=== PATIENT | female | born 2000 | race Caucasian/White ===

== ENCOUNTER → 2022-08-27 13:41 | Outpatient (CLI) | payer BC, SELFPAY ==
--- NOTE | ~2022-08-27 | US_ITS ---
EXAMINATION: US pelvic complete DATE: 08/27/2022 13:56 INDICATION: Bilateral adnexal pain TECHNIQUE: Multiple transabdominal sonographic images of the pelvis were obtained. COMPARISON: None. FINDINGS: The uterus measures 6.4 x 2.6 x 3.6 cm. The endometrial complex measures 4 mm. The right ov gutierrez measures 2.9 x 1.4 x 1.6 cm. The left ovary measures 2 x 1.2 x 1.6 cm. There is normal vascular f low in the ovaries. There is no free fluid in the pelvis. IMPRESSION: 1. No sonographic correlate for the patient's symptoms. Reviewed, dictated and finalized at location L. LACTATION
== END ==
PROVIDERS: PCP Nurse Practitioner; Visit Provider Nurse Practitioner
DX: R10.2 Pelvic and perineal pain (principal)
CPT/HCPCS: 76856

== ENCOUNTER → 2023-01-28 13:06 | Outpatient (CLI) | payer BC, SELFPAY ==
--- NOTE | ~2023-01-28 | US_ITS ---
Pelvic ultrasound. Clinical History: First trimester , evaluate viability Technique: Realtime transabdominal and transvaginal scanning of the pelvis was performed. Color flow Doppler and Doppler spectral analysis were performed. Findings: The uterus is anteverted, and contains an intrauterine gestation. Hester-rump length of 1.4 cm corresponds to an estimated gestational age of 7 weeks 4 days. heart rate is 162 bpm. The right ovary measures 2.6 x 1.7 x 2.3 cm. No significant right ovarian or adnexal mass is seen. The left ovary measures 2.6 x 2.0 x 2.9 cm. No significant left ovarian or adnexal mass is seen. There is no evidence of free fluid in the cul de sac. Impression: Live intrauterine gestation with estimated gestational age of 7 weeks 4 days. heart rate is 162 bpm. Sonographic AIRAM is 09/11/2023. Reviewed, dictated and finalized at [facility]. Impression: Live intrauterine gestation with estimated gestational age of 7 weeks 4 days. F etal heart rate is 162 bpm. Sonographic AIRAM is 09/11/2023.
== END ==
PROVIDERS: PCP Advanced Practice Midwife; Visit Provider Advanced Practice Midwife
DX: O36.80X0 Pregnancy with inconclusive fetal viability, not applicable or unspecified (principal); Z3A.01 Less than 8 weeks gestation of pregnancy
CPT/HCPCS: 76801

== ENCOUNTER → 2023-04-19 10:47 | Outpatient (CLI) | payer BC, MEDICAID, SELFPAY ==
--- NOTE | ~2023-04-19 | US_ITS ---
EXAMINATION: US OB /maternal detail DATE: 04/19/2023 11:35 INDICATION: anatomic survey. TECHNIQUE: Real-time ultrasound of the pelvis was performed. COMPARISON: Ultrasound 01/28/23 FINDINGS: There is a single living fetus in breech presentation. The placenta is anterior and fundal, 7.6 cm f rom the cervix. The cervical length is 3.6 cm on transabdominal images, which is normal. heart rate is 157 beats per minute (bpm). The amniotic fluid volume is subjectively normal. The following biometric data were obtained: Biparietal diameter (BPD): 4.3 cm; head circumference (HC): 16.7 cm; abdominal circumference (AC): 14 .1 cm; femur length (FL): 2.9 cm. These measurements are concordant. Estimated weight is 280 g +/- 42 g, which correlates with the 41st percentile when 09/11/23 is u sed as estimated date of delivery. As single measurements, these parameters are each equal to the following estimated gestational ages: BPD: 19 weeks 0 days. HC: 19 weeks 3 days. AC: 19 weeks 3 days. FL: 18 weeks 6 days. estimated gestational age based solely on measurements from this exam is 19 weeks 1 days +/- 1 weeks 2 days. The cerebral ventricles, cerebellum, cisterna magna, nuchal fold, lip, and visualized portions of the spine are normal. The heart is normal. The diaphragm, stomach, kidneys, and bladder are normal. Ther e are two umbilical arteries to yield a 3-vessel cord. The cord insertion is normal. IMPRESSION: 1. Single living fetus in breech presentation. 2. Estimated weight is 280 g +/- 42 g, which correlates with the 41st percentile when 09/11/23 is used as estimated date of delivery. This date was set by ultrasound on 01/28/2023. 3. Normal anatomic survey. Reviewed, dictated and finalized at location A. IMPRESSION: 1. Single living fetus in breech presentation. 2. Estimated weight is 280 g +/- 42 g, which correlates with the 41st pe rcentile when 09/11/23 is used as estimated date of delivery. This date was set by ultrasound on 01/28/2023. 3. Normal anatomic survey.
== END ==
PROVIDERS: PCP Advanced Practice Midwife; Visit Provider Advanced Practice Midwife
DX: Z36.9 Encounter for antenatal screening, unspecified (principal)
CPT/HCPCS: 76805

== ENCOUNTER 2023-08-17 16:41 | Outpatient (CLI) | payer MEDICAID, SELFPAY ==
--- NOTE | ~2023-08-17 | US_ITS ---
EXAMINATION: US OB follow up DATE: 08/17/2023 17:34 INDICATION: Size less than dates. TECHNIQUE: Real-time ultrasound of the pelvis was performed. COMPARISON: Ultrasound 04/19/2023, 01/28/2023 FINDINGS: There is a single living fetus in vertex presentation. The placenta is anterior. heart rate is 150 beats per minute (bpm). The amniotic fluid index is 10.0 cm, which is normal. The following biometric data were obtained: Biparietal diameter (BPD): 9.0 cm; head circumference (HC): 33.4 cm; abdominal circumference (AC): 29 .2 cm; femur length (FL): 6.8 cm. These measurements are discordant with high HC/AC ratio. Estimated weight is 2451 g +/- 368 g, which correlates with the 11th percentile when 09/11/23 is used as estimated date of delivery. As single measurements, these parameters are each equal to the following estimated gestational ages: BPD: 36 weeks 3 days. HC: 38 weeks 1 days. AC: 33 weeks 1 days. FL: 35 weeks 0 days. estimated gestational age based solely on measurements from this exam is 35 weeks 5 days +/- 2 weeks 3 days. IMPRESSION: 1. Single living fetus in vertex presentation. 2. Estimated weight is 2451 g +/- 368 g, which correlates with the 11th percentile when 4 is used as estimated date of delivery. This date was set by ultrasound on 01/28/2023. 3. Discordant biometrics with high HC/AC ratio. Reviewed, dictated and finalized at location E. PATCHER IMPRESSION: 1. Single living fetus in vertex presentation. 2. Estimated weight is 2451 g +/- 368 g, which correlates with the 11th percentile when 09/11/23 is used as estimated date of delivery. This date was se t by ultrasound on 01/28/2023. 3. Discordant biometrics with high HC/AC ratio.
== END 2023-08-17 16:42 | disposition home or self-care (01) ==
LOC: ANHIMG 16:43
PROVIDERS: PCP Family Medicine; Visit Provider Advanced Practice Midwife
DX: O36.5930 Maternal care for other known or suspected poor fetal growth, third trimester, not applicable or unspecified (principal); Z3A.00 Weeks of gestation of pregnancy not specified
CPT/HCPCS: 76816

== ENCOUNTER 2023-08-19 11:00 | Outpatient (CLI) | payer BC, MEDICAID, SELFPAY ==
--- NOTE | ~2023-08-19 | US_ITS ---
US umbilical doppler 08/19/2023 12:12 Indication: Size less than gestational dates. Procedure: High-resolution Limited obstetrical ultrasound including umbilical Doppler examination Comparison: Ultrasound dated 08/17/2023 Findings: There is a single living intrauterine in vertex presentation. Placenta is anterio r without previa. heart rate 149 BPM. Amniotic fluid is subjectively normal. Umbilical artery pulsed Doppler demonstrates peak systolic to end-diastolic velocity ratios (S/D rati os) of 2.9 near the fetus, 2.9 in the mid cord, and 2.1 near the placenta (5th percentile = 2, 95th p ercentile = 3.3). Impression: 1: Single living intrauterine in vertex presentation. 2: Normal umbilical Doppler study. Reviewed, dictated and finalized at location L. OFFICER Impression: 1: Single living intrauterine in vertex presentation. 2: Normal umbilical Doppler study.
== END 2023-08-19 11:01 | disposition home or self-care (01) ==
LOC: ANHIMG 11:02
PROVIDERS: PCP Family Medicine; Visit Provider Obstetrics & Gynecology Gynecology
DX: O36.5930 Maternal care for other known or suspected poor fetal growth, third trimester, not applicable or unspecified (principal); Z3A.00 Weeks of gestation of pregnancy not specified
CPT/HCPCS: 76820

== ENCOUNTER 2023-08-31 16:55 | Inpatient (IN) | payer BC, MEDICAID, SELFPAY ==
[2023-08-31] VITALS (12 sets, daily range): BP systolic 80–122; BP diastolic 49–88; PULSE 92–114; BMI 33.8
--- NOTE | 2023-08-31 16:55 | LDADM ---
This patient, Elisa Waldron, was admitted to Labor/Delivery/Recovery 107 on 08/31/23 at 16:55. Plans for labor, pain management and were discussed with patient. Patient/family oriented to hospital policies and general routines including ID bracelet, bed and alarms, visiting hours, pain management, procedures, bathroom and other care routines, personal items, smoking policy, room service/diet and guest tray routines, infant security routines, and visiting hours. Patient/Family are encouraged to report perceived risks to care and to ask questions if they do not understand what they are told or what they should do. See OBIX for further documentation.
[2023-08-31 17:50] LABS: Basophils Absolute Auto 0.1 K/mm3 (0.0-0.1); Basophils Percent Auto 0.4 % (0.2-1.2); Eosinophils Absolute Auto 0.1 K/mm3 (0-0.3); Eosinophils Percent Auto 0.9 % (0-4.4); Hematocrit 34.4 % (37.0-47.0); Hemoglobin 10.8 g/dL (12.0-15.0); Immature Granulocyte Percent A 0.8 % (0-0.5); Lymphocytes Absolute Auto 2.36 K/mm3 (0.9-3.2); Mean Corpuscular HGB Conc 31.4 g/dl (32-36); Mean Corpuscular Hemoglobin 24.6 pg (26-34); Mean Corpuscular Volume 78.4 fl (80-100); Mean Platelet Volume 10.8 fl (7.4-10.4); Monocytes Absolute Auto 1.1 K/mm3 (0.1-0.6); Monocytes Percent Auto 8.5 % (2.6-8.5); Neutrophils Absolute Auto 8.8 K/mm3 (1.3-6.7); Neutrophils Percent Auto 70.4 % (45.5-73.1); Platelet Count Result 305 k/mm3 (150-375); Red Blood Count 4.39 M/mm3 (4.2-5.4); Red Cell Distribution Width 14.7 % (11.5-14.5); White Blood Count 12.4 K/mm3 (4.5-10.0)
[2023-08-31] MEDS: miSOPROStol 25 MCG TABLET PO (18:14)
[2023-08-31] MEDS: miSOPROStol 25 MCG TABLET 50 MCG PO (22:26)
[2023-09-01] VITALS (300 sets, daily range): BP systolic 66–175; BP diastolic 24–153; PULSE 25–180; TEMP 36.2–36.9; O2SAT 88–100
[2023-09-01] MEDS: LACTATED RINGERS 1,000 ML 999 ML IV CONT ×3 (01:41→13:49)
[2023-09-01] MEDS: OXYTOCIN 30 UNITS/NS 500 ML 30 UNITS/500 ML BAG IV CONT (03:41)
[2023-09-01] MEDS: LACTATED RINGERS 500 ML 999 ML IV CONT (07:16)
--- NOTE | 2023-09-01 07:17 | WPDANESEPP ---
Anes - Eval Pre Procedure Procedure: labor epidural Date/Time: 09/01/23 07:17 Surgeon: jorge Preop Diagnosis: pain during labor Pre Op Diagnosis: Induction of Labor Patient Data Age: 22 Gender: F Height: 1.57 m Weight: 84 kg Last Vital Signs Temp 36.2 C L 09/01/23 06:17 Pulse 91 09/01/23 07:00 BP 112/62 09/01/23 07:00 Pulse Ox 99 09/01/23 07:13 O2 Del Method Room Air 08/31/23 18:00 Allergies Allergy/AdvReac Type Severity Reaction Status Date / Time sumatriptan Allergy Swelling Verified 08/06/23 13:56 of Lip/Tongue/Throat Home Medications Medication Instructions Recorded Confirmed Type Classic 1 tab-cap PO DAILY 08/06/23 08/06/23 History aspirin 81 mg capsule 81 mg PO DAILY 08/06/23 08/31/23 History ergocalciferol (vitamin D2) 1,250 50,000 unit PO WEEKLY 08/06/23 08/06/23 History mcg (50,000 unit) capsule (Vitamin D2) Laboratory Tests 08/31/23 17:27 WBC 12.4 H K/mm3 (4.5-10.0) RBC 4.39 M/mm3 (4.2-5.4) Hgb 10.8 L g/dL (12.0-15.0) Hct 34.4 L % (37.0-47.0) MCV 78.4 L fl (80-100) MCH 24.6 L pg (26-34) MCHC 31.4 L g/dl (32-36) RDW 14.7 H % (11.5-14.5) Plt Count 305 k/mm3 (150-375) MPV 10.8 H fl (7.4-10.4) Immature Gran % (Auto) 0.8 H % (0-0.5) Neut % (Auto) 70.4 % (45.5-73.1) Lymph % (Auto) 19.0 % (18.3-44.2) [place] % (Auto) 8.5 % (2.6-8.5) Eos % (Auto) 0.9 % (0-4.4) Baso % (Auto) 0.4 % (0.2-1.2) Lymph # (Auto) 2.36 K/mm3 (0.9-3.2) [place] # (Auto) 1.1 H K/mm3 (0.1-0.6) Eos # (Auto) 0.1 K/mm3 (0-0.3) Baso # (Auto) 0.1 K/mm3 (0.0-0.1) Abs Immat Gran (auto) 0.10 H K/mm3 (0.00-0.031) Absolute Neuts (auto) 8.8 H K/mm3 (1.3-6.7) Absolute Nucleated RBC 0.0 K/mm3 (0.0-0.012) Nucleated RBC % 0.0 % (0.0-0.2) RPR Pending Blood Type O Positive Antibody Screen Negative Patient hx anesthesia problems: none Family hx anesthesia problems: none Results Review: All pre-operative results and documents have been reviewed as part of the pre-operative evaluation. [facility] Past Medical History Medical History (Updated 09/01/23 @ 07:18 by Arielle Waller CRNA) IUP (intrauterine ), incidental Social History Social History Smoking status: Never smoker Substance use: never Do You Feel Safe in your Home?: Yes Lack of Transportation: No Lack of Food: Never True Current Housing: I Have Housing Concerned About Future Housing: No Difficulty Paying Gas/Electric Bills: No Difficulty Paying for Meds: No Currently Unemployed: No Education: High School Diploma/GED Difficulty w/ Childcare or Family Care: No Spiritual care concerns: No Exam Day of Procedure 09/01/23 07:17
--- NOTE | 2023-09-01 07:19 | PM.OBPNLAB ---
Pain Control Date/time seen: 09/01/23 0500 CNM called by Syl RAMOS. Pain control: tolerating well Assessment and Plan Comments: Called overnight with intermittent decelerations. Pitocin stopped. Minimal cervical change with cytotec.
--- NOTE | 2023-09-01 07:21 | PM.OBPNLAB ---
Pain Control Date/time seen: 09/01/23 0441 Pain control: tolerating well Assessment and Plan Comments: Spoke with Dr. Borges on telephone. Discussed intermittent decels overnight and that pitocin was turned off. MD advised may offer to break water and place IUPC or elect for .
--- NOTE | 2023-09-01 07:22 | PM.OBPNLAB ---
Pain Control Date/time seen: 09/01/23 07:15 Pain control: tolerating well Comments: CNM at bedside. Pelvic Exam Dilation (cm): 2 Effacement (%): 75 station: -2 Amniotic membrane status: Intact Comments: head well applied to cervix. Contractions Monitor mode: External Contraction pattern: Irregular Status status: Category ll Assessment and Plan Comments: Discussed plan of care with Vanita and her S.O. Discussed MD's recommendations. Reviewed tracing. Many periods of category 1 tracing with accelerations. Vanita elects for amniotomy and IUPC placement. Discussed risks, benefits, and expectations of breaking water. Amniotomy performed and there was a small return of clear amniotic fluid. IUPC inserted easily and clear fluid returned in catheter. Patient tolerated procedure well. Plan to start pitocin after 30 minutes as needed to achieve adequate contraction pattern. Dr. Borges updated.
--- NOTE | 2023-09-01 07:25 | PM.IMHP ---
H&P: HPI History of Present Illness Date/Time: 09/01/23 07:25 Chief Complaint: Induction of labor Narrative: 22 y.o. at 39 weeks 2 days. Elective IOL. Review of Systems Review of Systems: All systems reviewed & are unremarkable except as noted in HPI and below PMFSH Past Medical History Medical History (Updated 09/01/23 @ 07:27 by Sapphire Urena CNM) IUP (intrauterine ), incidental Social History Social History Smoking status: Never smoker Substance use: never Do You Feel Safe in your Home?: Yes Lack of Transportation: No Lack of Food: Never True Current Housing: I Have Housing Concerned About Future Housing: No Difficulty Paying Gas/Electric Bills: No Difficulty Paying for Meds: No Currently Unemployed: No Education: High School Diploma/GED Difficulty w/ Childcare or Family Care: No Spiritual care concerns: No Meds Home Medications and Allergies Home Medications Medication Instructions Recorded Confirmed Type Classic 1 tab-cap PO DAILY 08/06/23 08/06/23 History aspirin 81 mg capsule 81 mg PO DAILY 08/06/23 08/31/23 History ergocalciferol (vitamin D2) 1,250 50,000 unit PO WEEKLY 08/06/23 08/06/23 History mcg (50,000 unit) capsule (Vitamin D2) Allergies Allergy/AdvReac Type Severity Reaction Status Date / Time sumatriptan Allergy Swelling Verified 08/06/23 13:56 of Lip/Tongue/Throat Vital Signs Vital Signs - 24 hr 08/31/23 17:42 08/31/23 17:45 08/31/23 18:31 Temperature Pulse Rate 101 H 106 H 110 H Blood Pressure 114/69 99/64 L 104/88 Pulse Oximetry Oxygen Delivery 08/31/23 19:01 08/31/23 20:01 08/31/23 20:31 Temperature Pulse Rate 93 107 H Blood Pressure 99/49 L 103/75 97/63 L Pulse Oximetry Oxygen Delivery 08/31/23 21:01 08/31/23 21:31 08/31/23 22:00 Temperature Pulse Rate 114 H 105 H 105 H Blood Pressure 80/57 L 117/68 112/74 Pulse Oximetry Oxygen Delivery 08/31/23 22:30 08/31/23 23:00 08/31/23 23:30 Temperature Pulse Rate 101 H 103 H 92 Blood Pressure 120/85 122/78 112/76 Pulse Oximetry Oxygen Delivery 09/01/23 00:01 09/01/23 00:30 09/01/23 01:30 Temperature Pulse Rate 97 99 102 H Blood Pressure 123/71 104/65 103/63 Pulse Oximetry Oxygen Delivery 09/01/23 01:45 09/01/23 02:00 09/01/23 02:16 Temperature Pulse Rate 87 88 89 Blood Pressure 99/58 L 95/54 L 115/85 Pulse Oximetry Oxygen Delivery 09/01/23 02:20 09/01/23 02:25 09/01/23 02:30 Temperature Pulse Rate 94 Blood Pressure 114/71 Pulse Oximetry 99 99 99 Oxygen Delivery 09/01/23 02:35 09/01/23 02:40 09/01/23 02:45 Temperature Pulse Rate 88 Blood Pressure 120/69 Pulse Oximetry 99 98 99 Oxygen Delivery 09/01/23 02:50 09/01/23 02:55 09/01/23 03:00 Temperature Pulse Rate 96 Blood Pressure 118/77 Pulse Oximetry 99 100 93 Oxygen Delivery 09/01/23 03:05 09/01/23 03:10 09/01/23 03:15 Temperature Pulse Rate 99 Blood Pressure 112/71 Pulse Oximetry 99 99 98 Oxygen Delivery 09/01/23 03:20 09/01/23 03:25 09/01/23 03:30 Temperature Pulse Rate 95 Blood Pressure 117/73 Pulse Oximetry 100 99 99 Oxygen Delivery 09/01/23 03:35 09/01/23 03:40 09/01/23 03:45 Temperature Pulse Rate 92 Blood Pressure 137/115 H Pulse Oximetry 99 100 99 Oxygen Delivery 09/01/23 03:47 09/01/23 03:50 09/01/23 03:55 Temperature Pulse Rate 85 Blood Pressure 100/53 L Pulse Oximetry 99 99 Oxygen Delivery 09/01/23 04:00 09/01/23 04:05 09/01/23 04:10 Temperature 97.8 F Pulse Rate 88 Blood Pressure 107/56 L Pulse Oximetry 99 99 98 Oxygen Delivery 09/01/23 04:15 09/01/23 04:17 09/01/23 04:20 Temperature Pulse Rate 90 Blood Pressure 102/56 L Pulse Oximetry 98 100 Oxygen Delivery 09/01/23 04:25 09/01/23 04:30 02/07/24 04:31 Temperature Pu
[2023-09-01] MEDS: fentaNYL CITRATE INJ (*CRX) 100 MCG/2 ML VIAL 50 MCG IV PUSH (07:35)
[2023-09-01] MEDS: SODIUM CHLORIDE 0.9% IV 600 ML I-UTERINE (09:02)
[2023-09-01] MEDS: ONDANSETRON INJ 4 MG/2 ML VIAL IV PUSH (11:16)
--- NOTE | 2023-09-01 12:12 | PM.OBPNLAB ---
Pain Control Date/time seen: 09/01/23 12:08 Pain control: epidural Pelvic Exam Amniotic membrane status: Ruptured Contractions Monitor mode: Internal Contraction pattern: Irregular Status status: Category ll Assessment and Plan Comments: Spoke with Juanis RAMOS. Strip reviewed. Encourage frequent position change. Ctx pattern irregular. Encouraged upright positioning if FHTs tolerate. Call CNM with concerns. Dr. Borges updated.
[2023-09-01 13:01] LABS: Rapid Plasma Reagin Non-Reactive (NonReactive)
[2023-09-01] MEDS: CALCIUM CARBONATE (TUMS) 500 MG (200 MG ELEMENTAL) 400 MG PO (14:42)
[2023-09-01] MEDS: SODIUM CHLORIDE 0.9% IV 1,000 ML 150 ML I-UTERINE (14:43)
--- NOTE | 2023-09-01 18:15 | PM.OBPNLAB ---
Pain Control Date/time seen: 09/01/23 1720 Pain control: tolerating well and epidural Pelvic Exam Amniotic membrane status: Ruptured Contractions Monitor mode: Internal Contraction pattern: Irregular Intrauterine tone measurement: 200 Status status: Category ll Comments: Reassured by moderate variability and accelerations Assessment and Plan Assessment: induction ongoing Plan: continuous present management Comments: CNM at bedside. No evidence of infection. Discussed plan of care. Discussed tracing an ctx pattern. Pt feeling positive and desires to continue IOL. Dr. Morgan updated.
[2023-09-01] MEDS: OXYTOCIN 30 UNITS/NS 500 ML 30 UNITS/500 ML BAG 999 UNITS IV CONT (21:47)
[2023-09-01] MEDS: OXYTOCIN 30 UNITS/NS 500 ML 30 UNITS/500 ML BAG 125 UNITS IV CONT (22:15)
--- NOTE | 2023-09-01 22:25 | PM.OBPRVD ---
OB - Vaginal Delivery Note Procedure Delivery date: 09/01/23 Events: Elective Induction of Labor Induction method: AROM, Per Misoprostol Protocol and Per Pitocin Protocol Delivery augmentation: Pitocin Delivery monitor: External FHT and Internal Uterine Route of delivery: Episiotomy description: None Laceration Description: Periurethral (bilateral), Perineal - 2nd Degree and Labial (right) Delivery repair: vicryl Specimen: No Quantitative Blood Loss (ml): 250 Anesthesia type: Epidural Disposition: Floor Complications: No immediate complications Narrative: Vanita Arrived for induction of labor. She was given 2 doses of Cytotec. Followed by Pitocin. She progressed to complete dilation and began pushing with contractions. She brought the head to a complete crown. With the next push there was delivery of the head and restitution was observed. She then easily delivered the anterior and posterior shoulders followed by remainder of the infant. The infant was placed on maternal abdomen and dried and stimulated with the nursery staff. After less than 1 minute of life, the cord was doubly clamped and cut and the baby was brought to the warmer. Cord blood, cord gases, and cord segment were obtained. The placenta delivered spontaneously and a second-degree perineal laceration was repaired in usual fashion. It did extend to the right labia and this was also repaired. Bilateral periurethral tears were superficial and hemostatic. There was excellent uterine tone, although he recounts were correct. Mother and baby skin to skin in the delivery room Baby Date of : 09/01/23 Time of : 21:46 Weeks of gestation at delivery: 39 Infant gender: Female Weight (pounds): 0 (weight unavailable at the time of this note) presentation: vertex position: Right Occiput Anterior Placenta delivery description: Spontaneous and Normal Configuration Cord Vessel Description: 3 Vessels and Delayed Cord Clamping (less than one minute per nursery staff request.) score one minute: 4 score five minutes: 7
--- NOTE | 2023-09-01 22:33 | WPDOBADMIT ---
Obstetrics - Admit Note Admission Note: record reviewed. No pertinent additions to the history and/or any subsequent changes in the physical findings that are not consistent with the expected course of the were found. Additions to the history and/or subsequent changes in the physical findings follow. None. Admitted on for IOL
--- NOTE | 2023-09-01 22:33 | PM.OBDSVD ---
DS: Admitting Diagnosis Discharge Date 09/03/23 Admitting Diagnosis 22 y.o. at 39 weeks gestation Elective IOL DS: Discharge Diagnosis Discharge Diagnosis (1) 39 weeks gestation of : Code(s): Z3A.39 - 39 weeks gestation of Status: Acute (2) (normal spontaneous vaginal delivery): Code(s): O80 - Encounter for full-term uncomplicated delivery Status: Acute (3) Intends to breastfeed: Status: Acute (4) Obstetric vaginal laceration with second degree perineal laceration: Code(s): O70.1 - Second degree perineal laceration during delivery Status: Acute OB - DS: Summary Hospital Course Hospital Course: Uncomplicated. transferred to . OB Procedures : Ultrasound OB Procedures Intrapartum: Spontaneous Vag Delivery OB Procedures: : None Peripartum Data Delivery Method: Natural Vaginal Laceration Description: Periurethral (bilateral), Perineal - 2nd Degree and Labial (right) Episiotomy description: None complications: none Status at Discharge Functional status at discharge: independent ambulation Overall status at discharge: patient is progressing back to baseline Time Spent with Patient Time attestation: Total time spent providing and/or coordinating discharge services: Exam Narrative: Alert and oriented. Mood is pleasant and cooperative. Perineum with minimal edema. Fundus firm and below umbilicus. Const: General: cooperative, healthy appearing, no acute distress and alert Orientation/consciousness: patient oriented x3 Limitations: no limitations Resp: Effort & Inspection: normal respiratory effort and able to speak in complete sentences Auscultation: clear to auscultation bilaterally Cardio: Rate: regular rate GI: Inspection: normal to inspection Auscultation: normal bowel sounds : General: Yes bladder normal to palpation External Female Exam: other (lochia WNL) Bimanual exam- vagina & uterus: bladder normal to palpation Other: Fundus firm and below U Skin: General skin exam: normal color and no rashes or lesions noted Neuro: General: patient oriented x3 and moves all extremities Cognition (Neuro): normal cognition Extrem: General: normal to inspection and no calf tenderness Psych: Appearance: grossly normal Mental Status: mental status grossly normal Affect: normal affect Thought process: Normal thought process present DS: Data Data Completed and Pending Labs on day of discharge: Labs from last 24 hours 08/31/23 17:27 RPR Non-reactive Discharge Plan Discharge Attending physician on discharge: Sol Borges Discharging Clinician: Sapphire Urena Anticipated Discharge Date/Time: 09/03/23 22:35 Patient Disposition: Home, Self-Care Activity: may shower and pelvic rest Diet: regular Wound Care Instructions: follow printed instructions Discharge Instructions: Continue taking your vitamin and any other supplements as previously directed (Examples: Iron, Vitamin D). You may take Tylenol 1000mg over the counter every 6 hours as needed for pain. Do not exceed 4000mg of Tylenol daily. You may continue using tucks pads and dermoplast spray if needed for a few more days. Depression Notify provider for signs or symptoms. These may include- Feelings: Feeling anxious, angry, hopeless, guilt, or loss of interest/pleasure in activities you normally enjoy. Mood swings or panic attacks. General: Extreme fatigue, loss of your appetite, feeling restless. Crying excessively, irritability, insomnia Psychological: Lack of concentration, depression or fear, unwanted thoughts Weight: Significant gain or loss Safety: Thoughts of harming yourself or your baby. Patient Instructions: Antibiotic Form Stand Alone Forms: General Discharge Information Follow-up/Referrals: [facility]
[2023-09-02] VITALS (9 sets, daily range): BP systolic 101–127; BP diastolic 60–72; PULSE 85–96; RESP 16–20; TEMP 36.5–36.9; O2SAT 96–100
[2023-09-02] MEDS: IBUPROFEN 600 MG TABLET PO ×2 (00:30→17:02)
--- NOTE | 2023-09-02 00:36 | OBPPTRN ---
Patient transferred to post room #287 via wheelchair. Support person present. Oriented to unit, room, information board, rooming in, admission packet and security measures. Patient verbalizes understanding.
[2023-09-02] MEDS: ACETAMINOPHEN 325 MG TABLET 650 MG PO ×3 (02:10→17:01)
[2023-09-02 05:00] LABS: Hematocrit 33.4 % (37.0-47.0); Hemoglobin 10.3 g/dL (12.0-15.0)
[2023-09-02] MEDS: MULTIVIT/MIN/PREN/FOL AC/IRON TABLET 1 TAB PO (07:14)
--- NOTE | 2023-09-02 07:56 | PM.OBPNVD ---
OB - PN: Subj Subjective Date/time seen: 09/02/23 07:56 Patient comments: no complaints and pain well controlled baby status: other (likely transfer to [facility]) OB - PN: Obj Data Labs 09/02/23 04:52 Labs: Laboratory Results - last 24 hr 08/31/23 09/02/23 17:27 04:52 Hgb 10.3 L Hct 33.4 L RPR Non-reactive OB - PN A/P Plan day: 1 Plan: routine care Time Spent With Patient Time: Total time spent is greater than 50% in coordination of care (as documented) at patient's floor/unit and/or counseling patient: Exam : Bimanual exam- vagina & uterus: other (Uterus firm, nt @U)
--- NOTE | 2023-09-02 13:00 | PC.NURSE ---
Patient left out on pass to see baby at 1300. Patient was told to be back by 1700.
--- NOTE | 2023-09-02 13:31 | WPDANLDPN2 ---
Anes-Prog Note L&D Date/Time: 09/02/23 13:31 Neuro status: Neuro function grossly intact. Vital Signs: Last Vital Signs Temp 98.2 F 09/02/23 12:17 Pulse 92 09/02/23 12:17 Resp 20 09/02/23 12:17 BP 112/60 09/02/23 12:17 Pulse Ox 99 09/02/23 12:17 O2 Del Method Room Air 09/02/23 00:45 Pain score (VAS): 0 Other findings: pt out on pass due to transfer
--- NOTE | 2023-09-02 15:41 | PC.NURSE ---
Addendum entered by Clau Dotson RN 09/02/23 15:48: Encouraged mother to have a pumping session together before heading to [facility] to protect her milk supply. Original Note: 0850 - Received report from Primary RN and it is unsure if mother has a pump or is pumping. Introductions were made with mother and observation determines that mother doesn't have a pump and offer of getting mother pumping with a hospital pump to protect the milk supply due to separation with her was completed. Mother accepted receiving the pump. 0900 - Breast pump provided due to separation. Education given to mother for adequate milk production to initiate pumping every 3 hours (8 times in 24 hours) 1-2 times at night. Mother voiced understanding of the education shared and declined initiating pumping. No additional pumping education was done at this time related to mother having visitors and was expecting to come visit soon due to the transfer of care to [facility]. Reported to the Primary RN.
--- NOTE | 2023-09-02 17:00 | PC.NURSE ---
Patient returned to the unit from her 4 hour pass.
[2023-09-03] MEDS: IBUPROFEN 600 MG TABLET PO ×2 (03:45→10:02)
[2023-09-03] MEDS: ACETAMINOPHEN 325 MG TABLET 650 MG PO ×2 (03:45→10:02)
--- NOTE | 2023-09-03 07:52 | PM.OBPNVD ---
OB - PN: Subj Subjective Date/time seen: 09/03/23 07:40 Interval history: Doing well. Urinating without difficulty. Denies passing any large clots. Denies dizziness with ambulating. Tolerating po food and fluids. Infant transferred yesterday to [facility]. Pumping Patient comments: no complaints [place] baby status: NICU [place] feeding status: pumping and storing OB - PN: Obj [employer] 09/02/23 04:52 OB - PN A/P Plan day: 2 Plan: discharge home Time Spent With Patient Time: Total time spent is greater than 50% in coordination of care (as documented) at patient's floor/unit and/or counseling patient: Review of Systems Review of Systems: All systems reviewed & are unremarkable except as noted in HPI and below Exam Narrative: Alert and oriented. Mood is pleasant and cooperative. Perineum with minimal edema. Fundus firm and below umbilicus. Const: General: cooperative, healthy appearing, no acute distress and alert Orientation/consciousness: patient oriented x3 Limitations: no limitations Resp: Effort & Inspection: normal respiratory effort and able to speak in complete sentences Auscultation: clear to auscultation bilaterally Cardio: Rate: regular rate GI: Inspection: normal to inspection Auscultation: normal bowel sounds : General: Yes bladder normal to palpation External Female Exam: other (lochia WNL) Bimanual exam- vagina & uterus: bladder normal to palpation Other: Fundus firm and below U Skin: General skin exam: normal color and no rashes or lesions noted Neuro: General: patient oriented x3 and moves all extremities Cognition (Neuro): normal cognition Extrem: General: normal to inspection and no calf tenderness Psych: Appearance: grossly normal Mental Status: mental status grossly normal Affect: normal affect Thought process: Normal thought process present
[2023-09-03 08:15] VITALS: BP 131/86; PULSE 107; RESP 18; TEMP 36.7; O2SAT 99
[2023-09-03] MEDS: MULTIVIT/MIN/PREN/FOL AC/IRON TABLET 1 TAB PO (10:03)
[2023-09-03] MEDS: DOCUSATE SODIUM 100 MG CAPSULE PO (10:03)
--- NOTE | 2023-09-03 15:28 | PC.NURSE ---
1010 - Primary RN is present discharge patient. Patient shared she has been pumping prior to coming in to deliver, she doesn't have pain with pumping and denies any need for additional education. Reviewed pumping 8 times in 24 hours with 1-2 times at night to build a milk supply.Mom encouraged to use resources at [facility], Dr. Borges's office, and services at [facility] if she has any concerns or questions. Mother voiced understanding.
== END 2023-09-03 10:28 | disposition home or self-care (01) | DRG 807 ==
LOC: ANHLDR 09-01 22:37 → ANHOB2 09-02 00:45
PROVIDERS: Admitting Provider Obstetrics & Gynecology Gynecology; PCP Family Medicine; Referring Provider Advanced Practice Midwife; Visit Provider Obstetrics & Gynecology Gynecology
DX: O76 Abnormality in fetal heart rate and rhythm complicating labor and delivery (principal); Z37.0 Single live birth; O70.1 Second degree perineal laceration during delivery; Z3A.39 39 weeks gestation of pregnancy
CPT/HCPCS: 36415; 85014; 85018; 85025; 86592; 86850; 86900; 86901; A9270; J2405; J2590; J2795; J3010; J7030; J7120